=== PATIENT | male | born 1990 | race African-American/Black ===

== ENCOUNTER 2021-02-08 13:53 | Emergency (ER) | END 2021-02-08 17:15 | disposition left against medical advice (07) | LOC: CSHERS 13:53 | DX: Z53.21 Procedure and treatment not carried out due to patient leaving prior to being seen by health care provider (principal) ==

== ENCOUNTER 2021-12-26 02:24 | Emergency (ER) | payer SELFPAY | END 2021-12-26 03:33 | disposition home or self-care (01) | LOC: CSHERS 02:24 | DX: M54.50 Low back pain, unspecified (principal) | CPT/HCPCS: 72100 ==